=== PATIENT | male | born 1940 | race Caucasian/White ===

== ENCOUNTER 2018-11-10 09:04 | Day surgery (SDC) | payer MEDICARE, BC ==
[~2018-11-10 09:04] MED LIST: SEVOFLURANE 15 MIN
[2018-11-10] MEDS: LACTATED RINGER'S 1,000 ML IV (10:38)
[2018-11-10] MEDS ORDERED: SOD CHLORIDE 0.9% 1,000 ML IV (11:48)
[2018-11-10] MEDS ORDERED: OXYCODONE/ACETAMINOPHEN (5/325) TAB PO ×3 (12:00→15:00)
[2018-11-10] MEDS ORDERED: morphine 2 MG INJ IV (12:00)
[2018-11-10] MEDS ORDERED: ONDANSETRON 4 MG INJ IV ×2 (12:00→15:00)
[2018-11-10] MEDS ORDERED: VANCOMYCIN 1 GM (PMX) 250 ML (12:12)
[2018-11-10] MEDS ORDERED: PROPOFOL 20 ML (12:38)
[2018-11-10] MEDS ORDERED: MIDAZOLAM 1 MG/ML 2 ML INJ (12:38)
[2018-11-10] MEDS ORDERED: LIDOCAINE 2% (SDV) 5 ML INJ (12:38)
[2018-11-10] MEDS ORDERED: FAMOTIDINE 20 MG INJ (12:55)
[2018-11-10] MEDS ORDERED: DEXAMETHASONE 4 MG/ML 5 ML INJ (12:55)
[2018-11-10] MEDS ORDERED: ONDANSETRON 4 MG INJ (12:55)
[2018-11-10] MEDS ORDERED: FENTAnyl 50 MCG/ML VIAL (13:03)
[2018-11-10] MEDS ORDERED: EPHEDrine 25 MG/5 ML SYG (13:19)
[2018-11-10] MEDS ORDERED: HYDROmorphONE 2 MG/ML SYG (13:35)
[2018-11-10] MEDS ORDERED: ROPIVACAINE 0.5 % 30 ML VIAL (14:38)
[2018-11-10] MEDS ORDERED: MEPERIDINE 25 MG INJ IV (15:00)
[2018-11-10] MEDS ORDERED: FENTAnyl 50 MCG/ML VIAL IV (15:00)
[2018-11-10] MEDS ORDERED: PROCHLORPERAZINE 10 MG INJ IV (15:00)
[2018-11-10] MEDS ORDERED: DIPHENHYDRAMINE 50 MG INJ IV (15:00)
[2018-11-10] MEDS ORDERED: EPHEDrine 25 MG/5 ML SYG IV (15:00)
[2018-11-10] MEDS ORDERED: HYDROmorphONE 1 MG/5 ML IV SYRINGE IV ×2 (15:00)
== END 2018-11-10 16:45 | disposition home or self-care (01) ==
LOC: SDS 09:04
DX: S83.281D Other tear of lateral meniscus, current injury, right knee, subsequent encounter (principal); S83.241D Other tear of medial meniscus, current injury, right knee, subsequent encounter; X58.XXXD Exposure to other specified factors, subsequent encounter; M11.261 Other chondrocalcinosis, right knee; M94.261 Chondromalacia, right knee; J44.9 Chronic obstructive pulmonary disease, unspecified
CPT/HCPCS: 29880